=== PATIENT | female | born 1995 | race Caucasian/White ===

== ENCOUNTER 2019-05-24 09:44 | Emergency (ER) | payer SELFPAY ==
--- NOTE | 2019-05-24 10:09 | ED ---
Skin Complaint - HPI Summary HPI Summary: 24 year old F presents to the ED with a chief complaint of rashes beginning several days ago. Her rash is diffuse but especially prominent on her face and extremities. The rash has a associated "prickly" sensation. Patient also reports a sore throat and a fever of 103 degrees F a week ago. She has not encountered any new foods, pets, or sexual partners recently. Her two children do not share symptoms. She has a history of Graves' and Yen's disease. She does not smoke tobacco or do recreational drugs. No family history of Yen's disease. She has served in the [employer]. - History of Current Complaint Chief Complaint: EDRashSkinAbscess Time Seen by Provider: 05/24/19 09:53 Stated Complaint: RASH PER PT Hx Obtained From: Patient Onset/Duration: Started Days Ago Timing: Constant Pain Intensity: 0 Pain Scale Used: 0-10 Numeric Skin Location: Diffuse, Face, Neck, Arm, Hand, Leg, Foot Associated Signs & Symptoms: Fever, Hoarseness, Rash - Allergy/Home Medications Allergies/Adverse Reactions: Allergies Allergy/AdvReac Type Severity Reaction Status Date / Time No Known Allergies Allergy Verified 05/24/19 09:48 Home Medications: Home Medications NK [No Home Medications Reported] 05/24/19 [History Confirmed 05/24/19] PMH/Surg Hx/FS Hx/Imm Hx Endocrine/Hematology History: Reports: Other Endocrine/Hematological Disorders - Graves' Disease, Yen's Disease. Neurological History: Denies: Other Neuro Impairments/Disorders - Immunization History Date of Influenza Vaccine: 04/21/2019 Immunizations Up to Date: Yes Infectious Disease History: No Infectious Disease History: Denies: Traveled Outside the [place] in Last 30 Days - Family History Known Family History: Negative: Other - Negative Yen's - Social History Alcohol Use: None Substance Use Type: Reports: None Smoking Status (MU): Never Smoked Tobacco Review of Systems Positive: Fever - 103 F last week, resolved now Positive: Sore Throat Positive: Rash All Other Systems Reviewed And Are Negative: Yes Physical Exam - Summary Physical Exam Summary: VITAL SIGNS: Reviewed. GENERAL: Patient is a well-developed and nourished female who is lying comfortable in the stretcher. Patient is not in any acute respiratory distress. HEAD AND FACE: No signs of trauma. No ecchymosis, hematomas or skull depressions. No sinus tenderness. EYES: PERRLA, EOMI x 2, No injected conjunctiva, no nystagmus. EARS: Hearing grossly intact. Ear canals and tympanic membranes are within normal limits. MOUTH: Oropharynx within normal limits. No tongue or lip edema. No throat obstruction. NECK: Supple, trachea is midline, no adenopathy, no JVD, no carotid bruit, no c- spine tenderness, neck with full ROM. CHEST: Symmetric, no tenderness at palpation. LUNGS: Clear to auscultation bilaterally. No wheezing or crackles. CVS: Regular rate and rhythm, S1 and S2 present, no murmurs or gallops appreciated. ABDOMEN: Soft, non-tender. No signs of distention. No rebound, no guarding, and no masses palpated. Bowel sounds are normal. EXTREMITIES: FROM in all major joints, no edema, no cyanosis or clubbing. NEURO: Alert and oriented x 3. No acute neurological deficits. Speech is normal and follows commands. SKIN: Dry and warm. Diffuse rash. Hives on face and upper extremities. Triage Information Reviewed: Yes Vital Signs On Initial Exam: Initial Vitals Temp Pulse Resp BP Pulse Ox 98.9 F 121 18 165/87 98 05/24/19 09:45 05/24/19 09:45 05/24/19 09:45 05/24/19 09:45 05/24/19 09:45 Vital Signs Reviewed: Yes Procedures - Sedation Patient Received Moderate/Deep Sedation with Procedure: No Diagnostics - Vital Signs Vital Signs Temp Pulse Resp BP Pulse Ox 05/24/19 09:45 98.9 F 121 18 165/87 98 - Laboratory Result Diagrams: 05/24/19 10:44 05/24/19 10:44 Lab Statement: Any lab studies that have been ordered have been reviewed, and results considered in the medical decision making process. Course/Dx - Course Assessment/Plan: Patient is a 24-year-old female with a chief complaint of itchy rash. Physical exam without any significant abnormality. In the ED course the patient was given Benadryl for the itching. Patient doesnt have any swelling of the tongue, any trismus, or any feeling that her throat is closing, or swelling of the lips. After the patient was given the Benadryl per oral, the rash and hives resolved. I discussed all the findings and test results with the patient. Patient was instructed to return to the emergency room immediately if any of the symptoms return or worsen. Plan of care was discussed with the patient and understands and agrees. All questions were answered at patient satisfaction. There were no further complaints or concerns. Lung exam before discharge: CTA B/L. Good air exchange. No wheezing or crackles heard. CVS: S1 and S2 present. No murmurs appreciated. Patient is alert and oriented x 3. Patient is hemodynamically stable. Patient will be discharged home with follow up PCP in the next 2-3 days - Diagnoses Provider Diagnoses: Rash, Allergic reaction Discharge ED - Sign-Out/Discharge Documenting (check all that apply): Patient Departure - discharge - Discharge Plan Condition: Stable Disposition: HOME Patient Education Materials: General Allergic Reaction (ED) Forms: *Work Release Referrals: Renzo Beck MD [Primary Care Provider] - Additional Instructions: Follow up with your primary care provider in 2-3 days. Return to the Emergency Department if you experience new or worsened symptoms. - Attestation Statements Document Initiated by Abimbola: Yes Documenting Scribe: Dimitri Mathur Provider For Whom Abimbola is Documenting (Include Credential): Dr. Demetris Muhammad MD. Scribe Attestation: Dimitri Owens scribed for Dr. Demetris Muhammad MD. on 05/24/19 at 1726. Status of Scribe Document: Ready
[2019-05-24] MEDS ORDERED: diPHENhydraMINE PO* 50 MG PO ONE (10:38)
[2019-05-24 11:00] LABS: ABS Eosinophils 0.1 10^3/ul (0-0.6); ABS Lymphocytes 1.6 10^3/ul (1.0-4.8); ABS Monocytes 0.8 10^3/ul (0-0.8); ABS Neutrophils 1.9 10^3/ul (1.5-7.7); Eosinophil % 1.4 %; Hematocrit 37 % (35-47); Hemoglobin 13.2 g/dL (12.0-16.0); Lymphocyte % 37.4 %; Mean Corpuscular HGB Conc 36 g/dL (31-36); Mean Corpuscular Hemoglobin 30 pg (27-31); Mean Corpuscular Volume 83 fL (80-97); Mean Platelet Volume 8.2 fL (7.4-10.4); Nucleated Red Blood Cells % 0.1; Platelet Count 224 10^3/uL (150-450); Red Blood Count 4.43 10^6 /uL (3.70-4.87); Red Cell Distribution Width 12 % (10-15); White Blood Count 4.3 10^3/uL (3.5-10.8)
[2019-05-24 11:03] LABS: Albumin 3.9 g/dL (3.2-5.2); Calcium 9.2 mg/dL (8.6-10.3); Potassium 4.3 mmol/L (3.5-5.0); Total Bilirubin 0.9 mg/dL (0.2-1.0)
[2019-05-24 11:09] LABS: Albumin/Globulin Ratio 1.5 (1-3); BUN/Creatinine Ratio 25.9 (8-20); C Reactive Protein 4.48 mg/L (<8.01); EGFR African American 167.8 (>60); EGFR Non-African American 138.7 (>60); Globulin 2.6 g/dL (2-4); Total Protein 6.5 g/dL (6.4-8.9)
[2019-05-24 12:36] VITALS: BP 125/74
== END 2019-05-24 12:37 | disposition home or self-care (01) ==
LOC: ED 09:44
DX: T78.40XA Allergy, unspecified, initial encounter (principal); X58.XXXA Exposure to other specified factors, initial encounter; Y92.9 Unspecified place or not applicable
CPT/HCPCS: 36415; 80053; 85025; 86140; 99282; A9270-GY

== ENCOUNTER 2019-09-30 15:38 | Emergency (ER) | payer BC ==
[2019-09-30 16:10] VITALS: BP 125/85
--- NOTE | 2019-09-30 16:12 | UC ---
Throat Pain/Nasal Emmanuel HPI - HPI Summary HPI Summary: 24 yo female presents with flu-like symptoms. She tells me that over the last 3 weeks she has had a sore throat, sinus pain/pressure/congestion, and dry cough. Over the last 3 days has had fatigue and feeling feverish. 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 She has been taking tylenol and OTC cold medications with intermittent relief. She did get a flu shot this year. Denies SOB, chest pain, abdominal pain, vomiting, dysuria, rash. - History of Current Complaint Chief Complaint: UCRespiratory Stated Complaint: RESP COMPLAINT Time Seen by Provider: 09/30/19 16:12 Hx Obtained From: Patient Hx Last Menstrual Period: IUD Onset/Duration: Gradual Onset Severity: Mild Pain Intensity: 2 Pain Scale Used: 0-10 Numeric - Allergies/Home Medications Allergies/Adverse Reactions: Allergies Allergy/AdvReac Type Severity Reaction Status Date / Time No Known Allergies Allergy Verified 09/30/19 16:10 Home Medications: Home Medications Amoxicillin PO (*) [Amoxicillin 875 MG (*)] 875 mg PO BID #14 tab 09/30/19 [Rx] Propranolol TAB* [Inderal TAB*] 1 tab PO DAILY 09/30/19 [History Confirmed 09/30] methIMAzole [Methimazole] 6 tab PO DAILY 09/30/19 [History Confirmed 09/30/19] PMH/Surg Hx/FS Hx/Imm Hx - Additional Past Medical History Additional PMH: Graves disease - Surgical History Surgical History: None - Family History Known Family History: Negative: Other - Negative Yen's - Social History Lives: With Family Alcohol Use: Occasionally Substance Use Type: None Smoking Status (MU): Never Smoked Tobacco Review of Systems All Other Systems Reviewed And Are Negative: No Constitutional: Positive: Chills, Fatigue, Other - Body aches Skin: Positive: Negative Eyes: Positive: Negative ENT: Positive: Sore Throat, Nasal Discharge, Sinus Congestion Respiratory: Positive: Cough Cardiovascular: Positive: Negative Gastrointestinal: Positive: Negative Neurovascular: Positive: Negative Neurological/Mental Status: Positive: Negative Psychological: Positive: Negative Physical Exam - Summary Physical Exam Summary: GENERAL: NAD. WDWN. No pain distress. SKIN: No rashes, sores, lesions, or open wounds. HEENT: Head: AT/NC Eyes: EOM intact. Conjunctiva clear without inflammation or discharge. Ears: Hearing grossly normal. TMs intact, no bulging, erythema, or edema. Nose: Nasal mucosa pink and moist. NTTP maxillary and frontal sinus. Throat: Posterior oropharynx without exudates, erythema, or tonsillar enlargement. Uvula midline. NECK: Supple. Nontender. No lymphadenopathy. CHEST: CTAB. No r/r/w. No accessory muscle use. Breathing comfortably and in no distress. CV: RRR. Pulses intact. Cap refill <2seconds NEURO: Alert. PSYCH: Age appropriate behavior. Triage Information Reviewed: Yes Vital Signs: Initial Vital Signs Temp 98.7 F 09/30/19 16:06 Pulse 78 09/30/19 16:06 Resp 16 09/30/19 16:06 BP 125/85 09/30/19 16:06 Pulse Ox 99 09/30/19 16:06 Laboratory Tests 09/30/19 16:21 Influenza A (Rapid) Negative Influenza B (Rapid) Negative Vital Signs Reviewed: Yes Throat Pain/Nasal Course/Dx - Course Course Of Treatment: POC flu negative. Given length of symptoms and worsening symptoms will rx for anbx at this time. - Differential Dx/Diagnosis Provider Diagnosis: URI (upper respiratory infection) Discharge ED - Sign-Out/Discharge Documenting (check all that apply): Patient Departure All imaging exams completed and their final reports reviewed: No Studies - Discharge Plan Condition: Stable Disposition: HOME Prescriptions: Amoxicillin PO (*) [Amoxicillin 875 MG (*)] 875 mg PO BID #14 tab Patient Education Materials: Upper Respiratory Infection (ED) Referrals: Marilyn Canas NP [Primary Care Provider] - Additional Instructions: If you develop a fever, shortness of breath, chest pain, new or worsening symptoms - please call your PCP or go to the ED immediately. FLU TEST NEGATIVE TODAY GIVEN YOUR CONTINUED/WORSENING SYMPTOMS - WILL TREAT WITH ANTIBIOTICS AT THIS TIME - Billing Disposition and Condition Condition: STABLE Disposition: Home
[2019-09-30 16:33] LABS: Influenza A Molecular Negative (Negative); Influenza B Molecular Negative (Negative)
== END 2019-09-30 17:00 | disposition home or self-care (01) ==
LOC: UCEAST 15:38
DX: J06.9 Acute upper respiratory infection, unspecified (principal); E05.00 Thyrotoxicosis with diffuse goiter without thyrotoxic crisis or storm
CPT/HCPCS: 99212; G0463

== ENCOUNTER → 2019-10-24 05:31 | Day surgery (SDC) | payer BC ==
[~2019-10-24 05:31] MED LIST: Acetaminophen IV 1GM/100ML * 1,000 MG/100 ML VIAL IVPB ONE; Acetaminophen IV 1GM/100ML * 100 ML ONE; Buffered Lidocaine 1% SYRIN* 1 ML/SYRINGE INTRADERM ONE; Bupivacaine 0.25% SDV* 30 ML ONE; Lactated Ringers 1000 ML Bag* 1,000 ML IV SCH; Lidocaine 1% INJ* 10 MG/ML 30 ML SDV ONE; Metoprolol Tartrate IV* 1 MG/ML 5 ML VIAL ONE; Midazolam* 1 MG/ML 2 ML VIAL (2 MG) ONE; Naloxone* 0.4 MG/ML 1 ML VIAL IV PRN; Ondansetron INJ* 2 MG/ML VIAL ONE; Phenylephrine 40 MCG/ML SYRINGE ONE; Propofol* 10 MG/ML 20 ML BTL ONE; Rocuronium* 10 MG/ML VIAL ONE; Succinylcholine* 20 MG/ML 10 ML VIAL ONE; fentaNYL* 50 MCG/ML 2 ML VIAL (100 MCG VIAL) IV PRN; fentaNYL* 50 MCG/ML 2 ML VIAL (100 MCG VIAL) ONE; fentaNYL* 50 MCG/ML 5 ML VIAL (250 MCG VIAL) ONE
--- NOTE | 2019-10-24 10:27 | BRIEFOPN ---
Brief Operative/Procedure Note - Operation Details Pre-Op Diagnosis: Graves' disease Post-Op Diagnosis: same Procedures: total thyroidectomy Surgeon(s)/Proceduralists: Dr. Davidson. Assist: STACEY Eastman Anesthesia: GET. Fluids: 800 ml RL Estimated Blood Loss: < 50 ml Findings: as above Specimen(s)/Culture(s) Description: thryoid gland (left and right) Complications: none
--- NOTE | 2019-10-24 12:21 | OP ---
CC: Dr. Renzo Beck OPERATIVE REPORT: DATE OF OPERATION: 10/24/19 DATE OF : 89 SERVICE: General Surgery. SURGEON: Anais Davidson MD. DIGITAL MARKETING INTERN: STACEY Alvarado ANESTHESIOLOGIST: Dr. Vincent Kumar. ANESTHESIA: General endotracheal anesthesia. PRE-OP DIAGNOSIS: Graves disease. POST-OP DIAGNOSIS: Graves disease. OPERATIVE PROCEDURE: Total thyroidectomy. ESTIMATED BLOOD LOSS: Minimal, approximately 10 cc. SPECIMENS: Right and left thyroid lobes. INDICATIONS FOR SURGERY: Ms. Montes is a very pleasant 24-year-old female with a history of Graves disease that has been refractory to medical management. Therefore, she met criteria for a total thyroidectomy, as she did not wish to undergo SLOAN and she had an extremely enlarged thyroid gland. She understood that the risks of surgery included, but were not limited to bleeding , infection, and injury to nearby structures such as the recurrent laryngeal nerve as well as the possibility of permanent hyperparathyroidism. She understood the alternatives and benefits as well and she wished to proceed. DESCRIPTION OF PROCEDURE: The patient was brought back to the operating room and placed on the operating table in the supine position. Sequential compression devices were placed on bilateral lower extremities for DVT prophylaxis. No antibiotics were administered. General endotracheal anesthesia was induced. The electrodes for the nerve monitor were attached and then a time-out was performed prior to administering local anesthesia to the neck, which consisted of 0.25% Marcaine and 1% lidocaine mixed. Next, her neck was prepped and draped in normal sterile fashion and then prior to beginning the actual surgery, a time-out was performed again verifying the patient's name , date of , and the procedure to be performed. Next, an approximately 5- cm incision was made approximately 2 fingerbreadths above the sternal notch. The incision was 5 cm given how large the thyroid gland was. The skin was divided down through the subcutaneous tissue. The platysma was divided and the inferior and superior subplatysmal flaps were then developed. The median raphe between the strap muscles was identified and divided and then the isthmus was divided at the midline off of the trachea. Attention was first turned towards the right thyroid gland. The medial attachments of the thyroid gland to the thyroid were divided using LigaSure. The space of Nguyễn between the cricothyroid muscle and the upper pole of the thyroid gland was developed and divided and then the strap muscles were then retracted laterally off of the very enlarged right thyroid lobe. The superior pole vessels were divided using the combination of LigaSure and 2-0 silk ties and then after this, the thyroid was able to be rotated medially and anteriorly out of the neck. The recurrent laryngeal nerve was identified both visually and with the nerve monitor. The right upper parathyroid gland was also visualized posterior to the nerve. After the nerve's course was traced out in its entirety, the thyroid gland was able to be safely removed off of the trachea using the LigaSure. The suture was placed in the upper pole. It was examined for any parathyroids and none were identified. It was taken off the table as specimen. Next, attention was turned towards the left thyroid lobe, and in a similar fashion and the medial attachments to the left thyroid lobe were divided using a LigaSure. The space of Nguyễn was developed and the strap muscles were retracted laterally. The superior pole vessels were divided using a combination of 2-0 silk sutures and LigaSure. The left thyroid lobe was able to rotated medially and anteriorly out of the neck and then the recurrent laryngeal nerve was identified and its entire course was traced out. The left upper parathyroid gland was also identified and preserved. Next, the thyroid gland was then able to taken off of the trachea. Its upper pole was marked with a suture. It was examined for any parathyroid glands and none were identified. At this point, hemostasis was obtained in both the right and left lateral necks, and then Tisseel was placed. The strap muscles were reapproximated using 4-0 Vicryl sutures. The platysma was reapproximated using interrupted 4-0 Vicryl sutures and the skin was closed using a running 5-0 Prolene suture. Sterile dressing was then placed. The patient's anesthesia was reversed, and she was taken to the PACU in stable condition. At the end of the case, all counts were correct and I was present during the entirety of the case. [id number]/[facility] #: [id number] REJI
[2019-10-24 16:02] VITALS: BP 126/77
== END | disposition home or self-care (01) ==
LOC: OR 05:31
PROVIDERS: ATTEND Surgery
DX: E05.00 Thyrotoxicosis with diffuse goiter without thyrotoxic crisis or storm (principal)
CPT/HCPCS: 81025; 88307; C1776; J0330; J2250; J2405; J2704; J3010; J3490